=== PATIENT | male | born 1960 | race Caucasian/White ===

== ENCOUNTER 2024-05-10 12:05 | Day surgery (SDC) | payer OTHER ==
[2024-05-07 14:39] VITALS: BMI 42.2
[2024-05-10] MEDS ORDERED: PROPOFOL 40 ML ONE (13:35)
[2024-05-10 14:02] VITALS: RESP 18; TEMP 97
[2024-05-10 14:17] VITALS: BP 132/71; PULSE 86
== END 2024-05-10 14:17 | disposition home or self-care (01) ==
LOC: FASU-ENDO 12:05
PROVIDERS: ATTEND Internal Medicine Gastroenterology
PROC: 0DBL8ZX Excision of Transverse Colon, Via Natural or Artificial Opening Endoscopic, Diagnostic (ICD-10-PCS; principal; 2024-05-10 13:40)
DX: Z12.11 Encounter for screening for malignant neoplasm of colon (principal); D12.2 Benign neoplasm of ascending colon; K57.30 Diverticulosis of large intestine without perforation or abscess without bleeding; Z86.010 Personal history of colon polyps
CPT/HCPCS: 82962; 88305-TC